=== PATIENT | female | born 2000 | race African-American/Black ===

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

== ENCOUNTER → 2020-02-26 | Outpatient (CLI) | payer OTHER, MEDICAID ==
--- NOTE | 2020-02-26 19:16 | XCELERA REPORT ---
[address] [address] Transthoracic Echocardiogram Report Name: DEVON PEDERSEN Age: 19 yrs Gender: Female : 2000 Patient Status: Outpatient Patient Location: Study Date: 02/26/2020 08:16 AM History: [place] Height: 72 in Weight: 195 lb BSA: 2.1 m2 Procedure: A complete two-dimensional transthoracic echocardiogram was performed (2D, M-mode, spectral and color flow Doppler). The study was technically adequate with some images being suboptimal in quality. Reason For Study: MURMUR Previous Evaluation: No previous studies were available. History: Murmur. Ordering Physician: JUANPABLO WALTERS Performed By: Baldev Van Interpretation Summary Left ventricular systolic function is normal. The Ejection Fraction estimate is 60-65% The right ventricle is normal in size and function. There is a trace amount of mitral regurgitation There is a mild amount of pulmonic regurgitation There is a mild amount of tricuspid regurgitation Doppler findings do not suggest pulmonary hypertension. There is no aortic valve stenosis There is no pericardial effusion. MMode/2D Measurements & Calculations RVDd: 2.9 cm LVIDd: 5.4 cm FS: 42.6 % Ao root diam: IVSd: 0.77 cm LVIDs: 3.1 cm EDV(Teich): 2.9 cm LVPWd: 0.84 cm 141.7 ml Ao root area: ESV(Teich): 6.7 cm2 37.9 ml LA dimension: EF(Teich): 73.2 % 3.7 cm LVLd ap4: 8.6 cm SV(MOD-sp4): 92.0 ml EDV(MOD-sp4): 136.0 ml LVLs ap4: 6.9 cm ESV(MOD-sp4): 44.0 ml EF(MOD-sp4): 67.6 % Doppler Measurements & Calculations MV E max mohsen: MV P1/2t max mohsen: Ao V2 max: LV V1 max P.7 cm/sec 111.3 cm/sec 136.1 cm/sec 2.8 mmHg MV A max mohsen: MV P1/2t: 65.3 msec Ao max PG: LV V1 max: 32.0 cm/sec MVA(P1/2t): 3.4 cm2 7.4 mmHg 84.1 cm/sec MV E/A: 2.9 MV dec slope: 499.3 cm/sec2 MV dec time: 0.17 sec PA V2 max: PI end-d mohsen: TR max mohsen: MV P1/2t-pr_phl: 82.4 cm/sec 93.4 cm/sec 238.9 cm/sec 65.3 msec PA max PG: TR max P.7 mmHg 22.8 mmHg Left Ventricle The left ventricle is normal in size. There is normal left ventricular wall thickness. Left ventricular systolic function is normal. The Ejection Fraction estimate is 60-65%. Doppler measurements suggest normal left ventricular diastolic function. No regional wall motion abnormalities noted. Right Ventricle The right ventricle is normal in size and function. Atria The right atrium is normal. The left atrial size is normal. The interatrial septum is intact with no evidence for an atrial septal defect. There is no Doppler evidence for an interatrial shunt. Mitral Valve The mitral valve is grossly normal. There is no mitral valve stenosis. There is a trace amount of mitral regurgitation. Aortic Valve The aortic valve is normal in structure and function. The aortic valve is trileaflet. The aortic valve opens well. There is no aortic valve stenosis. No aortic regurgitation is present. Tricuspid Valve The tricuspid valve is normal in structure and function. There is no tricuspid stenosis. There is a mild amount of tricuspid regurgitation. Doppler findings do not suggest pulmonary hypertension. RSVP is equal to 27. Pulmonic Valve The pulmonic valve is normal in structure and function. There is no pulmonic valvular stenosis. There is a mild amount of pulmonic regurgitation. Great Vessels The aortic root is normal size. The inferior vena cava appeared normal and decreased > 50% with respiration (RAP 5-10 mmHg). Effusions There is no pericardial effusion. : JUANPABLO WALTERS Anil
== END ==
LOC: SP 08:02
PROVIDERS: ATTEND Family Medicine
DX: R01.1 Cardiac murmur, unspecified (principal)
CPT/HCPCS: 93306